=== PATIENT | female | born 1980 | race Hispanic/Latino ===

== ENCOUNTER 2023-03-06 07:57 | Emergency (ER) | payer OTHER ==
[~2023-03-06] VITALS: Ht 157.5 cm; Wt 61.2 kg
[2023-03-06 08:27] LABS: BASOPHILS % (AUTO) 0.1 % (0.0-5.0); EOSINOPHILS % (AUTO) 0.1 % (0.0-8.0); HEMATOCRIT 40.4 % (36-48); LYMPHOCYTES % (AUTO) 9.9 % (21.0-51.0); MEAN CORPUSCULAR HGB CONC 33.7 g/dL (32.0-36.0); MEAN CORPUSCULAR VOLUME 95.1 fL (79-99); MONOCYTES % (AUTO) 2.1 % (3.0-13.0); NEUTROPHILS % (AUTO) 87.3 % (40.0-77.0); PLATELET COUNT (AUTO) 221 K/uL (130-400); RED BLOOD CELL COUNT(AUTO) 4.25 MIL/uL (4.00-5.50); WHITE BLOOD COUNT (AUTO) 10.1 K/uL (4.8-10.8)
[2023-03-06] MEDS ORDERED: ONDANSETRON 4MG INJ IVP ONE (08:30)
[2023-03-06] MEDS ORDERED: 0.9%NACL 1000ML 1,000 ML IV ONE (08:30)
[2023-03-06 08:34] LABS: CREATININE 0.9 mg/dL (0.5-1.5); POTASSIUM 4.1 mmol/L (3.5-5.1)
[2023-03-06 08:39] LABS: ALBUMIN 4.1 g/dL (3.5-5.0); TOTAL PROTEIN, SERUM 7.8 g/dL (6.0-8.3)
[2023-03-06 09:08] LABS: APPEARANCE,URINE CLOUDY (CLEAR); BILIRUBIN,URINE NEGATIVE (NEGATIVE); COLOR,URINE YELLOW (YELLOW); GLUCOSE, URINE (UA) TRACE mg/dL (NEGATIVE); KETONES,URINE NEGATIVE (NEGATIVE); LEUKOCYTE ESTERASE ,URINE NEGATIVE Leu/uL (NEGATIVE); NITRATE,URINE NEGATIVE (NEGATIVE); OCCULT BLOOD,URINE LARGE (NEGATIVE); PROTEIN,URINE 10 mg/dL (NEGATIVE); UROBILINOGEN,URINE 0.2 mg/dL (0.2-1.0)
[2023-03-06 09:15] LABS: HCG,QUALITATIVE URINE NEGATIVE (NEGATIVE)
[2023-03-06 09:31] LABS: BACTERIA,URINE RARE /HPF (None Seen); MUCUS,URINE RARE LPF (None Seen); SQUAMOUS EPITHELIAL CELL,UR MANY /HPF (0-2)
[2023-03-06] MEDS ORDERED: IOHEXOL-350 75 ML VIAL IV ONE (10:27)
[2023-03-06] MEDS ORDERED: METR-172 PO (11:34)
[2023-03-06] MEDS ORDERED: PSYL283P35 PO (11:34)
[2023-03-06] MEDS ORDERED: ONDA4TAB10 PO (11:34)
[2023-03-06 11:46] VITALS: BP 108/64
== END 2023-03-06 11:53 | disposition home or self-care (01) ==
LOC: EDH 08:01
DX: K92.1 Melena (principal); R11.10 Vomiting, unspecified; K59.00 Constipation, unspecified; Z90.49 Acquired absence of other specified parts of digestive tract
CPT/HCPCS: 99285; 74177; 96374; 96361; 82270; 82150; 80053; 83690; 85025; 87088; 81001; 81025; 36415; J7030; J2405; Q9967